=== PATIENT | female | born 2005 | race Two or more races ===

== ENCOUNTER 2023-01-24 14:02 | Emergency (ER) | payer OTHER ==
[~2023-01-24] VITALS: Ht 157.5 cm; Wt 73.9 kg
[2023-01-24 14:58] VITALS: BP 144/75; TEMP 98.2; O2SAT 99
== END 2023-01-24 18:00 | disposition home or self-care (01) ==
LOC: ER 14:18
DX: R05.9 Cough, unspecified (principal); H92.03 Otalgia, bilateral; Z20.822 Contact with and (suspected) exposure to COVID-19
CPT/HCPCS: 99284; 71045; 87426; 87804 ×2; C9803